=== PATIENT | male | born 1945 | race Caucasian/White ===

== ENCOUNTER 2019-09-04 07:10 | Day surgery (SDC) | payer MEDICARE ==
[2019-08-27 15:51] LABS: BASOPHILS # (AUTO) 0.1 X10'3 (0-0.2); EOSINOPHILS # (AUTO) 0.2 X10'3 (0-0.9); EOSINOPHILS % (AUTO) 2.9 % (0-6); LYMPHOCYTES # (AUTO) 2.2 X10'3 (1.1-4.8); LYMPHOCYTES % (AUTO) 29.6 % (21-51); MEAN CORPUSCULAR HGB CONC 33.7 g/dL (33.0-36.5); MEAN PLATELET VOLUME 8.3 FL (7.4-10.4); MONOCYTES # (AUTO) 0.6 X10'3 (0-0.9); MONOCYTES % (AUTO) 8.4 % (2-12); NEUTROPHILS # (AUTO) 4.2 X10'3 (1.8-7.7); NEUTROPHILS % (AUTO) 58.1 % (42-75); PRE OP HEMATOCRIT 48.5 % (42.0-52.0); PRE OP HEMOGLOBIN 16.3 g/dL (14.0-17.9); PRE OP PLATELET COUNT 153 X10'3 (140-440); RED BLOOD COUNT 5.45 X10'6 (4.70-6.10); RED CELL DISTRIBUTION WIDTH 13.4 % (11.5-14.5)
[2019-08-27 16:01] LABS: PRE OP PROTIME 10.2 SECONDS (9.0-12.0)
[2019-08-27 16:03] LABS: ALBUMIN/GLOBULIN RATIO 1.3 (1.1-1.5); ALKALINE PHOSPHATASE 65 IU/L (46-116); BLOOD UREA NITROGEN 15 MG/DL (7-18); BUN/CREATININE RATIO 15.8 (5.4-32.0); CALCIUM 8.7 MG/DL (8.5-10.1); CHLORIDE 108 MMOL/L (99-107); CREATININE 0.95 MG/DL (0.60-1.10); PRE OP ALT 29 U/L (30-65); PRE OP ANION GAP 9 (8-16); PRE OP AST 19 U/L (10-37); PRE OP BILIRUB, TOTAL 0.4 MG/DL (0.0-1.0); PRE OP GLUCOSE 97 MG/DL (70-104); PRE OP POTASSIUM 3.8 MMOL/L (3.4-5.1); PRE OP SODIUM 144 MMOL/L (135-145); TOTAL CARBON DIOXIDE 26.7 MMOL/L (24-32); TOTAL PROTEIN 7.2 G/DL (6.4-8.2); eGFR 77 ML/MIN
[2019-09-04] VITALS (18 sets, daily range): BP systolic 91–141; BP diastolic 51–98
[~2019-09-04] VITALS: Ht 177.8 cm; Wt 83.9 kg
[~2019-09-04 07:10] MED LIST: FINA5TAB11 PO; FLO0.4C PO; MELO-100 PO; MULT-1085 PO; TADA5TAB2 PO; TEST200V10 IM; ceFAZolin 2gm in dextrose, iso 50 ML IV ONE; famotidine 20mg tablet PO ONE
[2019-09-04] MEDS ORDERED: LIDOcaine 1% (10mg/ml) 2ml vial ONE (08:12)
[2019-09-04] MEDS: ringers solution, lacted 1,000 ML IV SCH ×2 (08:23→19:15)
[2019-09-04] MEDS ORDERED: fentaNYL/PF 50MCG/1 ML 2ML syringe ONE (09:34)
[2019-09-04] MEDS ORDERED: MIDAZolam 5mg/5ml vial ONE (09:35)
[2019-09-04] MEDS ORDERED: propofol inj 20 ML IV ONE ×2 (10:07)
[2019-09-04] MEDS ORDERED: ePHEDrine 50MG/ML INJ. ONE (11:46)
--- NOTE | 2019-09-04 12:23 | NUR ---
RECEIVED FROM OR VIA BED ACCOMPANIED BY ANESTHESIOLOGIST DR JORDAN, REPORT GIVEN. PT AWAKE AND ALERT COMPLAINS OF SORENESS IN BILATERAL SHOULDERS RATED A 3. STATES SHOULDERS ARE BOTH PROBLEMATIC PRIOR TO SURGERY. VSS, SPINAL SENSATION LEVEL AT UMBILICUS, MUE, SKIN PINK AND WARM, SCDS APPLIED, F/C WIH NORMAL SALINE IRRIGATION DRAINING CLEAR ZOEY TINGED FLUID. RESTING COMFORTABLY
[2019-09-04] MEDS ORDERED: ringers solution, lacted 1,000 ML IV SCH (12:26)
[2019-09-04] MEDS ORDERED: morphine 4 MG/ML inj SYRINge IV PRN (12:30)
[2019-09-04] MEDS ORDERED: LIDOcaine 2% 10ml TOPICAL JELLY (Urojet) TP ONE (12:30)
[2019-09-04] MEDS ORDERED: meperidine/PF 25mg/ml syringe IV PRN ×3 (12:30)
[2019-09-04] MEDS ORDERED: acetaminophen 325mg tablet PO PRN (12:30)
[2019-09-04] MEDS ORDERED: zolpidem 5mg tablet PO PRN (12:30)
[2019-09-04] MEDS ORDERED: oxybutynin 5mg tablet PO PRN (12:30)
[2019-09-04] MEDS ORDERED: mag hydrox/Alum hydrox/simeth 30ml oral suspension PO PRN (12:30)
[2019-09-04] MEDS ORDERED: ondansetron/PF 4mg/2ml inj IV PRN ×2 (12:30)
[2019-09-04] MEDS ORDERED: proCHLORperazine 10 MG/2 ml inj IV PRN ×2 (12:30)
[2019-09-04] MEDS ORDERED: morphine 2 MG/ML inj. syringe IV PRN (12:30)
[2019-09-04] MEDS ORDERED: HYDROcodone/acetaminophen 10/325mg tab PO PRN (13:00)
--- NOTE | 2019-09-04 13:20 | NUR ---
Patient in room [facility]. I have received report from Ermelinda CRUZtherapeutic recreation assistant and had the opportunity to ask questions and assume patient care.
--- NOTE | 2019-09-04 13:43 | NUR ---
TRANSFERRED TO PT ROOM VIA BED ACCOMPANIED BY MYSELF, REPORT GIVEN. PT AWAKE AND ALERT COMPLAINS OF SORENESS IN BILATERAL SHOULDERS RATED A 3. STATES SHOULDERS ARE BOTH PROBLEMATIC PRIOR TO SURGERY. VSS, SPINAL SENSATION LEVEL AT UMBILICUS, MUE, SKIN PINK AND WARM, SCDS APPLIED, F/C WIH NORMAL SALINE IRRIGATION DRAINING CLEAR DARK ZOEY TINGED FLUID. RESTING COMFORTABLY, LEFT IN CARE OF SURGICAL FLOOR RN
[2019-09-04] MEDS: HYDROcodone/acetaminophen 10/325mg tab PO PRN ×2 (14:25→20:22)
[2019-09-04] MEDS: potassium cl 20mEq in 1/2 NS 1,000 ML IV SCH ×3 (14:31→23:01)
[2019-09-04] MEDS: ceFAZolin 1GM/D5W- ADD-VANTAGE 50 ML IV SCH (15:59)
[2019-09-04] MEDS ORDERED: ceFAZolin inj. 1,000 MG in dextrose 5%-water 50ml 50 ML IV SCH (16:00)
--- NOTE | 2019-09-04 19:00 | NUR ---
Problems reprioritized. Patient report given, questions answered & plan of care reviewed with Josephine CRUZ.
--- NOTE | 2019-09-04 19:00 | NUR ---
Unable to add "Hourly Rounding" to interventions. Rounded several times per hour [id number] with patient on bedrest, resting comfortably in bed without complaint except for mild urethral pain, medicated with [place] 10 with good results, pain down to 3. Patient able to turn self in bed side to side. at bedside, call light within reach, patient needs addressed. Fall precautions in place. CBI titrated PRN. 2 RN skin check performed at 1430 by Lyssa Nolasco RN and Cate Chavez RN- pt's skin clear.
[2019-09-04] MEDS: docusate sod 100mg capsule PO SCH (20:22)
[2019-09-04] MEDS: tamsulosin 0.4mg capsule PO SCH (20:22)
[2019-09-05] MEDS: ceFAZolin 1GM/D5W- ADD-VANTAGE 50 ML IV SCH ×2 (00:17→07:36)
[2019-09-05 04:01] VITALS: BP 132/74
[2019-09-05 04:59] LABS: BASOPHILS % (AUTO) 0.4 % (0-1); EOSINOPHILS # (AUTO) 0.2 X10'3 (0-0.9); EOSINOPHILS % (AUTO) 1.9 % (0-6); HEMATOCRIT 46.8 % (42.0-52.0); LYMPHOCYTES # (AUTO) 1.6 X10'3 (1.1-4.8); LYMPHOCYTES % (AUTO) 17.5 % (21-51); MEAN CORPUSCULAR HEMOGLOBIN 30.6 PG (27.0-31.0); MEAN CORPUSCULAR HGB CONC 34.2 g/dL (33.0-36.5); MEAN CORPUSCULAR VOLUME 89.4 FL (78-98); MEAN PLATELET VOLUME 7.8 FL (7.4-10.4); MONOCYTES # (AUTO) 0.8 X10'3 (0-0.9); MONOCYTES % (AUTO) 8.7 % (2-12); NEUTROPHILS # (AUTO) 6.6 X10'3 (1.8-7.7); NEUTROPHILS % (AUTO) 71.5 % (42-75); PLATELET COUNT 137 X10'3 (140-440); RED BLOOD COUNT 5.23 X10'6 (4.70-6.10); RED CELL DISTRIBUTION WIDTH 13.2 % (11.5-14.5); WHITE BLOOD COUNT 9.3 X10'3 (4.5-11.0)
[2019-09-05 05:26] LABS: ALBUMIN 3.3 G/DL (3.4-5.0); ANION GAP 5 (8-16); BLOOD UREA NITROGEN 14 MG/DL (7-18); BUN/CREATININE RATIO 13.3 (5.4-32.0); CHLORIDE 106 MMOL/L (99-107); CREATININE 1.05 MG/DL (0.60-1.10); GLUCOSE 111 MG/DL (70-104); POTASSIUM 4.4 MMOL/L (3.5-5.1); SODIUM 140 MMOL/L (135-145); eGFR 69 ML/MIN
--- NOTE | 2019-09-05 06:30 | NUR ---
Patient in room [facility]. I have received report from ANTHONY Burton and had the opportunity to ask questions and assume patient care.
--- NOTE | 2019-09-05 06:30 | NUR ---
Problems reprioritized. Patient report given, questions answered & plan of care reviewed with Ilene CRUZ.
[2019-09-05] MEDS ORDERED: pantoprazole 40mg Tablet.DR PO SCH (07:30)
[2019-09-05] MEDS: docusate sod 100mg capsule PO SCH (07:38)
[2019-09-05] MEDS: tamsulosin 0.4mg capsule PO SCH (07:38)
[2019-09-05 08:00] VITALS: BP 133/88
[2019-09-05] MEDS ORDERED: finasteride 5mg tablet PO SCH (08:00)
[2019-09-05] MEDS: potassium cl 20mEq in 1/2 NS 1,000 ML IV SCH (09:26)
[2019-09-05] MEDS ORDERED: DOCU-148 PO (10:50)
[2019-09-05 11:51] VITALS: BP 125/81
--- NOTE | 2019-09-05 12:45 | NUR ---
Instructed pt on lozano care. Leg bag and night bag provided. Pt having periodic spasms and passing bloody fluid around balloon. Pt became diaphoretic after preparing to DC BP and BG WNL. Pt recovered quickly on rest. Advised pt to take things a little slower at home until symptoms completely resolve. Pt instructed to notify Dr Roberts with continued spasm issues as meds can be called in if needed. Pt verbalized understanding of DC instructions.
== END 2019-09-05 14:09 | disposition home or self-care (01) ==
LOC: PAS 07:10 → SUR 3N 12:26 → PAS 09-05 14:09
PROVIDERS: ATTEND Urology
DX: N40.1 Benign prostatic hyperplasia with lower urinary tract symptoms (principal); N13.8 Other obstructive and reflux uropathy; R33.8 Other retention of urine; N21.0 Calculus in bladder; N32.89 Other specified disorders of bladder; Z11.59 Encounter for screening for other viral diseases; Z79.899 Other long term (current) drug therapy; Z79.01 Long term (current) use of anticoagulants; Z87.891 Personal history of nicotine dependence; Z98.890 Other specified postprocedural states
CPT/HCPCS: 36415; 52318; 52601; 80048; 80053; 82948; 85025; 85610; 85730; 86885; 86900; 86901; 93005; J0690; J2001; J2250; J2704; J3010; U0003; 88300; 88305; A4346; A4355; A4615; G0378; J3480; J7120

== ENCOUNTER 2021-08-21 09:18 | Outpatient (CLI) | payer MEDICARE ==
[~2021-08-21 09:18] MED LIST changes: +BARIUM SULFATE 340 ML SUSP.RECON***PROCEDURE AREA ONLY**DONT ENTER PO ONE; +BARIUM SULFATE 700 MG TABLET PO ONE; +DOCU-148 PO; -MELO-100 PO; -MULT-1085 PO; +SIMETHICONE/SOD BICARB/CIT AC PACKET PO ONE; -TEST200V10 IM; +TEST200V33 IM; -ceFAZolin 2gm in dextrose, iso 50 ML IV ONE; -famotidine 20mg tablet PO ONE
== END 2021-08-21 23:59 | disposition home or self-care (01) ==
LOC: RAD 09:18
PROVIDERS: ATTEND Family Medicine
DX: K44.9 Diaphragmatic hernia without obstruction or gangrene (principal)
CPT/HCPCS: 74220